=== PATIENT | male | born 1995 | race Caucasian/White ===

== ENCOUNTER 2018-09-28 11:44 | Emergency (ER) | payer OTHER ==
[~2018-09-28] VITALS: Ht 190.5 cm; Wt 124.7 kg
[2018-09-28 12:09] VITALS: BP 129/84
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
[2018-09-28] MEDS ORDERED: KETO10TA PO (12:41)
== END 2018-09-28 12:48 | disposition home or self-care (01) ==
LOC: ER 11:44
DX: S09.8XXA Other specified injuries of head, initial encounter (principal); S80.02XA Contusion of left knee, initial encounter; Z91.018 Allergy to other foods; V89.2XXA Person injured in unspecified motor-vehicle accident, traffic, initial encounter; Y93.84 Activity, sleeping; Y92.488 Other paved roadways as the place of occurrence of the external cause; Y99.8 Other external cause status
CPT/HCPCS: 70450; 73562; 99284-25